=== PATIENT | male | born 1985 | race Caucasian/White ===

== ENCOUNTER 2019-08-02 17:38 | Emergency (ER) | payer OTHER ==
[~2019-08-02] VITALS: Ht 165.1 cm; Wt 104.3 kg
[2019-08-02 17:41] VITALS: BP 142/80
[2019-08-02] MEDS ORDERED: NAPROSYN500 MG PO (18:30)
== END 2019-08-02 18:40 | disposition home or self-care (01) ==
LOC: ER 17:38
DX: S80.02XA Contusion of left knee, initial encounter (principal); F17.210 Nicotine dependence, cigarettes, uncomplicated; Z88.7 Allergy status to serum and vaccine; V89.2XXA Person injured in unspecified motor-vehicle accident, traffic, initial encounter; Y92.89 Other specified places as the place of occurrence of the external cause; Y93.89 Activity, other specified; Y99.8 Other external cause status

== ENCOUNTER 2021-02-27 00:57 | Inpatient (IN) | payer OTHER ==
[~2021-02-27] VITALS: Ht 167.6 cm; Wt 113.4 kg
[~2021-02-27 00:57] MED LIST: NAPROSYN500 MG PO
[2021-02-27 00:58] VITALS: BP 140/74
[2021-02-27] MEDS ORDERED: NOHOMEMEDICATIONS (01:03)
[2021-02-27 02:41] LABS: ABSOLUTE NEUTROPHILS 12.8 thou/uL (1.4-8.2); BASOPHILS 0.8 % (0.0-2.0); EOSINOPHILS 1.1 % (0.0-3.0); HEMATOCRIT 46.1 % (42.0-52.0); HEMOGLOBIN 15.6 gm/dL (14.0-18.0); LYMPHOCYTES 10.4 % (24.0-44.0); MCH 30.5 pg (26.0-34.0); MCHC 33.9 g/dL (28.0-37.0); MCV 89.7 fL (80.0-100.0); MONOCYTES 8.9 % (1.0-8.0); PLATELET COUNT 261 thou/uL (150-400); POLYS 78.8 % (36.0-66.0); RBC 5.14 mil/uL (4.50-6.00); RDW 14.1 % (10.5-14.5); WBC 16.2 thou/uL (4.0-11.0)
[2021-02-27 02:50] LABS: URINE BILIRUBIN NEGATIVE (Negative); URINE BLOOD NEGATIVE (Negative); URINE CLARITY CLEAR; URINE COLOR YELLOW; URINE GLUCOSE-RANDOM* NEGATIVE (Negative); URINE KETONES NEGATIVE (Negative); URINE LEUKOCYTES-REFLEX NEGATIVE (Negative); URINE NITRITE-REFLEX NEGATIVE (Negative); URINE PROTEIN (DIPSTICK) TRACE (Negative); URINE SPECIFIC GRAVITY >= 1.030 (1.005-1.035)
[2021-02-27 03:01] LABS: CALCIUM 8.3 mg/dL (8.5-10.1); POTASSIUM 3.9 mmol/L (3.5-5.1)
[2021-02-27 03:07] LABS: ALBUMIN 2.7 g/dL (3.4-5.0); DIRECT BILIRUBIN 0.2 mg/dL (<0.1-0.2); TOTAL PROTEIN 6.9 g/dL (6.4-8.2)
[2021-02-27 06:46] VITALS: BP 140/74
[2021-02-27 07:20] VITALS: BP 140/71
[2021-02-27 08:29] VITALS: BP 127/81
--- NOTE | 2021-02-27 12:11 | NUR ---
Pt arrived to floor from emergency dept per cart at 0829 in stbale condition. Admission hx ,assessment and careplan completed.Vss. Dr Viveros notified about consult.He rounded on pt and order noted.Wound culture sent to lab as ordered. No verbal c/o at present.Will continue to monitor.
[2021-02-27 15:15] VITALS: BP 117/78
[2021-02-27 19:44] VITALS: BP 133/76
--- NOTE | 2021-02-28 03:00 | NUR ---
ASSUMED CARE OF PT AT SHIFT CHANGE. PT IS AOX4 AND LETS BE KNOWN. PT IS UP AF JOSE E. PT DENIED PAIN, NAUSEA OR SOA. ASSESSMENT CHARED. DRESSING CHANGED/ REINFIORCED. IVF AND IV ABX CONTINUED. PT WAS ABLE OT GET COMFORTABLE AND SLEEP PART OF THE SHIFT. VSS AND NO S/S OF ACUTE DISTRSS. WILL CONTINUE TO MONITOR.
[2021-02-28 05:38] LABS: HEMOGLOBIN 15.7 gm/dL (14.0-18.0); MCH 31.2 pg (26.0-34.0); MCHC 34.2 g/dL (28.0-37.0); RBC 5.05 mil/uL (4.50-6.00); RDW 13.9 % (10.5-14.5); WBC 8.7 thou/uL (4.0-11.0)
[2021-02-28 05:50] LABS: ALBUMIN 2.4 g/dL (3.4-5.0); CALCIUM 8.3 mg/dL (8.5-10.1); CREATININE 1.2 mg/dL (0.7-1.3); POTASSIUM 4.4 mmol/L (3.5-5.1)
[2021-02-28 07:33] VITALS: BP 135/91
[2021-02-28] MEDS ORDERED: COLACE 100 MG100 MG PO (12:21)
[2021-02-28] MEDS ORDERED: PERCOCET 5-3251 EACH PO (12:22)
[2021-02-28] MEDS ORDERED: MIRALAX17 GM PO (12:22)
[2021-02-28] MEDS ORDERED: CEFDINIR300 MG PO (12:23)
[2021-02-28] MEDS ORDERED: FLAGYL500 M1 PO (12:23)
--- NOTE | 2021-02-28 12:26 | NUR ---
PT ADMITTED RELATED TO RECTTAL ABSCESS. CM REVIEWED CHART AND SPOKE WITH CARE TEAM. CM MET WITH PT AT BEDSIDE THIS DAY. PT APPEARED TO BE A&O X4. CM ROLE INTRODUCED. PT INDICATED HE RESIDES IN A HOUSE WITH HIS PARENTS WITH 3 STEPS TO ENTER AND NO STEPS INSIDE. 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 PT INDICATED HE HAD BEEN INDEPENDENT WITH GAIT AND ADLS. PT INDICATED NO DME OR HH HX. PT INDICATED NO PCP AND NO INSURANCE. CM TO [facility]E [facility] FOR FOLLOW UP CARES UPON DC. PT INDICATED HE WOULD BE ABLE TO AFFORD TO FILL MEDICATIONS UPON DC. PT WILL NEED SOME WC SUPPLIES UPON DC. 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 CARE TEAM INDICATED THAT PT WILL LIKELY ME MEDICALLY STABLE TO DC HOME THIS DAY TO SELF CARE. NO OTHER CM INTERVENTION INDICATED. CASE CLOSED.
[2021-02-28 13:41] VITALS: BP 135/91
[2021-02-28 13:47] VITALS: BP 135/91
--- NOTE | 2021-02-28 14:20 | NUR ---
Assumed pt care at 7am.Pt in bed sound asleep at the beginning of shift but arousable.Assessment caompleted .vss.Pt has good appetite and tolerated meds. Dr Viveros rounded on pt early this shift.Dc order noted.Pt prefered to dc home after lunch.Dc summary compile and reviewed with pt.Rx faxed to pt pharmacy by Dr Viveros.Ivf and saline lock dc'd.At 1425,pt dc home per wc accompanied by brother.
== END 2021-02-28 15:30 | disposition home or self-care (01) | DRG 983 ==
LOC: ER 00:57 → EROBS 04:38 → 4W 04:38
PROVIDERS: Emergency Medicine; Surgery; ADMIT Internal Medicine; ATTEND Internal Medicine
PROC: 0D9P0ZZ Drainage of Rectum, Open Approach (ICD-10-PCS; principal; 2021-02-27)
DX: L02.215 Cutaneous abscess of perineum (principal); Z88.6 Allergy status to analgesic agent; F12.90 Cannabis use, unspecified, uncomplicated; F17.210 Nicotine dependence, cigarettes, uncomplicated
CPT/HCPCS: 10047